=== PATIENT | male | born 1970 | race Hispanic/Latino ===

== ENCOUNTER 2017-09-02 06:54 | Day surgery (SDC) | payer BC ==
[2016-08-04 08:27] VITALS: BMI 24.4
[2017-09-02 07:47] VITALS: TEMP 97
[2017-09-02] MEDS ORDERED: Lactated Ringer's 1,000 ML IV ONE (09:08)
[2017-09-02] MEDS ORDERED: Propofol 10 mg/ml Inj (20 ML) ONE ×2 (09:11→09:35)
[2017-09-02] MEDS ORDERED: Ketamine 50 mg/ml Inj (10 ml) ONE (09:12)
[2017-09-02 09:21] VITALS: O2SAT 100
[2017-09-02] MEDS ORDERED: Lactated Ringer's 500 ML IV SCH (09:30)
[2017-09-02 11:26] VITALS: RESP 18
[2017-09-02 11:31] VITALS: BP 127/84; PULSE 62
== END 2017-09-02 10:45 | disposition home or self-care (01) ==
LOC: C.ENDO 06:54
PROVIDERS: ATTEND Internal Medicine Gastroenterology
DX: Z12.11 Encounter for screening for malignant neoplasm of colon (principal); Z86.010 Personal history of colon polyps; K64.1 Second degree hemorrhoids; I10 Essential (primary) hypertension; Z79.899 Other long term (current) drug therapy; K63.5 Polyp of colon
CPT/HCPCS: 45380; 88305; J2704; J7120

== ENCOUNTER 2018-02-01 11:48 | Emergency (ER) | payer OTHER ==
[2018-02-01 11:48] VITALS: BMI 24.4
[2018-02-01 12:03] VITALS: TEMP 98.1; O2SAT 98
--- NOTE | 2018-02-01 12:19 | C.PDOC ---
History Of Present Illness 47yo male with history of right elbow fracture (7 years ago), comes to ER for evaluation of persistent right elbow pain x 3 weeks. Patient states he injured his elbow on hard surface and has been having pain since then. Otherwise, he denies decrease in ROM, weakness, numbness or tingling. He denies any new injuries within the past 3 weeks. He offers no additional medical complaints. Time Seen by Provider: 02/01/18 11:57 Chief Complaint (Nursing): Upper Extremity Problem/Injury History Per: Patient History/Exam Limitations: no limitations Onset/Duration Of Symptoms: Persistent (3 weeks) Current Symptoms Are (Timing): Still Present Quality: "Pain" Additional History Per: Patient Past Medical History Reviewed: Historical Data, Nursing Documentation, Vital Signs Vital Signs: Last Vital Signs Temp 98.1 F 02/01/18 11:56 Pulse 88 02/01/18 11:56 Resp 18 02/01/18 11:56 BP 147/101 H 02/01/18 11:56 Pulse Ox 98 02/01/18 13:36 - Medical History PMH: Asthma, Colonic Polyps, Fractures (left wrist, right elbow), Gastritis, HTN , Kidney Stones Denies: Chronic Kidney Disease Surgical History: Tonsillectomy (1973) - [facility] Procedures CYSTOSCOPY NEC (02/19/14) TETANUS TOXOID ADMINIST (09/20/13) Family History: States: No Known Family Hx, Unknown Family Hx - Social History Hx Tobacco Use: No Hx Alcohol Use: Yes Hx Substance Use: No - Immunization History Hx Tetanus Toxoid Vaccination: No Hx Influenza Vaccination: Yes Hx Pneumococcal Vaccination: No Review Of Systems Musculoskeletal: Positive for: Arm Pain (right elbow pain) Neurological: Negative for: Weakness, Numbness Physical Exam - Physical Exam Appears: Non-toxic, No Acute Distress Extremity: Normal ROM (FROM at right elbow; patient able to pronate and supinate with no difficulty), Tenderness (mild tenderness to right lateral epicondyle), Capillary Refill (< 2 seconds), No Deformity, No Swelling Neurological/Psych: Oriented x3, Normal Motor, Normal Sensation (normal distal sensations on right upper extremity) ED Course And Treatment O2 Sat by Pulse Oximetry: 98 (RA) Pulse Ox Interpretation: Normal - Other Rad XR Right Elbow X-Ray: Viewed By Me, Read By Radiologist Interpretation: FINDINGS: BONES: A radial head ocular surface fracture with approximately 1 mm cortical offset depression suggested on series 4, image 1. History states prior fracture however no further details are prior images delineating where fracture was an its prior appearance are offered. Comparison images are strongly recommended. Graft olecranon spurring present. No posterior elbow fractures noted. JOINTS: Arthrosis present. SOFT TISSUES: Normal. JOINT EFFUSION: A large joint effusion appreciated. A small anterior elbow joint effusion cannot be excluded. OTHER FINDINGS: None. IMPRESSION: Radial head articular surface fracture with 1 mm depression. The history states prior fracture -additional imaging an additional history regarding the appearance and location a prior fracture is essential. If and when any outside pertinent images are presented, supplemental report can be issued. Patient is referencing pain of the lateral epicondyle - conceivably the lateral radial head fracture may also be contributing to this site of pain. Outside images are central in assessing for any interval change here in terms of acute and/or chronic injury. No large joint effusion suggested. Small joint effusion not excluded Orthopedic Time Performed: 13:26 Time Out: Side verified, Site verified, Patient ID confirmed Procedure: Splint Type: Posterior Location: Right Consent obtained: Verbal Diagnosis: Fracture Type: Non-displaced Bone: Radius (right radial head) Capillary refill: Normal Distal Sensation: Normal Distal Motor Function: Normal Capillary Refill: Normal Compartment: Normal, Soft, Nontender Distal Sensation: Normal Distal Motor Function: Normal Patient tolerated procedure: Well Notes:: Splint placed by CP and checked by provider. Medical Decision Making Medical Decision Making: Impression: Right elbow injury Plan: -- XR Right elbow -- Tylenol 975mg PO 1249 XR discussed with radiologist who states the patient might have a radial head fracture, splint applied, will f/u with ortho. Disposition Counseled Patient/Family Regarding: Studies Performed, Diagnosis, Need For Followup, Rx Given - Disposition Referrals: Keith Petit III, MD [Staff Provider] - Disposition: HOME/ ROUTINE Disposition Time: 13:34 Condition: GOOD Additional Instructions: Please follow up with Dr Petit and bring xray reports from your initial elbow fracture for comparison. Tylenol for pain. Keep splint clean and dry. . Prescriptions: Acetaminophen [Tylenol 325mg tab] 650 mg PO Q4 #50 tab Instructions: Elbow Fracture (DC) Forms: [employer] (Beninese), General Discharge Instructions - Clinical Impression Clinical Impression: Fracture of radial head, right, closed - PA / EDITOR MANAGING NEWSPAPER / Resident Statement MD/DO has reviewed & agrees with the documentation as recorded. - Scribe Statement The provider has reviewed the documentation as recorded by the Colleenibe Lizzeth Barton Provider Attestation: All medical record entries made by the Colleenibmarcello were at my direction and personally dictated by me. I have reviewed the chart and agree that the record accurately reflects my personal performance of the history, physical exam, medical decision making, and the department course for this patient. I have also personally directed, reviewed, and agree with the discharge instructions and disposition.
--- NOTE | 2018-02-01 12:47 | RAD ---
Date of service: 02/01/2018 PROCEDURE: Radiographs of the right elbow. HISTORY: prior fx, banged elbow, pain lat epicondyle COMPARISON: No prior. FINDINGS: BONES: A radial head ocular surface fracture with approximately 1 mm cortical offset depression suggested on series 4, image 1. History states prior fracture however no further details are prior images delineating where fracture was an its prior appearance are offered. Comparison images are strongly recommended. Graft olecranon spurring present No posterior elbow fractures noted. JOINTS: Arthrosis present SOFT TISSUES: Normal. JOINT EFFUSION: A large joint effusion appreciated. A small anterior elbow joint effusion cannot be excluded. OTHER FINDINGS: None. IMPRESSION: Radial head articular surface fracture with 1 mm depression. The history states prior fracture -additional imaging an additional history regarding the appearance and location a prior fracture is essential. If and when any outside pertinent images are presented, supplemental report can be issued Patient is referencing pain of the lateral epicondyle - conceivably the lateral radial head fracture may also be contributing to this site of pain. Outside images are central in assessing for any interval change here in terms of acute and/or chronic injury. No large joint effusion suggested. Small joint effusion not excluded Comments: Findings discussed with the PA view Janeth in the fast [facility] ER on 02/01/2018 at 12:45 p.m.
[2018-02-01 13:44] VITALS: BP 148/81; PULSE 78; RESP 16
== END 2018-02-01 13:43 | disposition home or self-care (01) ==
LOC: C.ER 11:48
DX: S52.124A Nondisplaced fracture of head of right radius, initial encounter for closed fracture (principal); X58.XXXA Exposure to other specified factors, initial encounter

== ENCOUNTER 2018-02-15 09:54 | Emergency (ER) | payer OTHER ==
[2018-02-15 09:55] VITALS: BMI 24.4
[2018-02-15 10:06] VITALS: BP 160/102; PULSE 89; RESP 18; TEMP 98.3; O2SAT 100
--- NOTE | 2018-02-15 10:30 | C.PDOC ---
History Of Present Illness 48 year old male presents to the ED for evaluation of right foot pain which had sudden onset two days ago. Patient reports pain with movement of his right big toe. He has been taking Celebrex and applying ice to the area with mild relief. Patient states the pain worsened last night, and presents to the ED for further evaluation. He does not recall eating anything aside from his regular diet and denies direct trauma/injury to the area. Time Seen by Provider: 02/15/18 10:07 Chief Complaint (Nursing): Lower Extremity Problem/Injury History Per: Patient History/Exam Limitations: no limitations Onset/Duration Of Symptoms: Days (2), Sudden Onset Current Symptoms Are (Timing): Worse - Ankle/Foot Description Of Injury: denies: Fell, Struck With Object, Struck Against Object Alleviating Factor(s): Ice Therapy Past Medical History Reviewed: Historical Data, Nursing Documentation, Vital Signs Vital Signs: Last Vital Signs Temp 98.3 F 02/15/18 10:04 Pulse 89 02/15/18 10:04 Resp 18 02/15/18 10:04 BP 160/102 H 02/15/18 10:04 Pulse Ox 100 02/15/18 11:12 - Medical History PMH: Asthma, Colonic Polyps, Fractures (left wrist, right elbow), Gastritis, HTN , Kidney Stones, Chronic Kidney Disease Surgical History: Tonsillectomy (1973) - [facility] Procedures CYSTOSCOPY NEC (02/19/14) TETANUS TOXOID ADMINIST (09/20/13) Family History: States: Unknown Family Hx - Social History Hx Tobacco Use: No Hx Alcohol Use: Yes Hx Substance Use: No - Immunization History Hx Tetanus Toxoid Vaccination: No Hx Influenza Vaccination: Yes Hx Pneumococcal Vaccination: No Review Of Systems Musculoskeletal: Positive for: Foot Pain (right) Skin: Negative for: Rash Neurological: Negative for: Weakness, Numbness Physical Exam - Physical Exam Additional Physical Exam Comments: Constitutional: No acute distress. Head: Atraumatic. Eyes: PERRL. Cardiovascular: Dorsalis Pedis pulse 2+ right lower extremity. Musculoskeletal: erythema, swelling, and tenderness to right foot 1st MTP Skin: No rash. Neurologic: Alert, no focal deficit. ED Course And Treatment O2 Sat by Pulse Oximetry: 100 (on RA) Pulse Ox Interpretation: Normal Medical Decision Making Medical Decision Making: Impression: 48 year old male with right foot pain Plan: * right foot XR * Toradol IM * reassess and disposition Progress: Right foot XR ordered and reviewed. Patient given Toradol IM. XR negative for fracture or dislocation as read by radiologist. 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 I have reviewed the chart and agree that the record accurately reflects my personal performance of the history, physical exam, medical decision making, and the department course for this patient. I have also personally directed, reviewed, and agree with the discharge instructions and disposition.
--- NOTE | 2018-02-15 11:43 | RAD ---
Date of service: 02/15/2018 PROCEDURE: Right Foot Radiographs. HISTORY: 1st MTP pain/swelling COMPARISON: None. FINDINGS: BONES: No acute fracture or destructive bony lesion identified. JOINTS: Normal. SOFT TISSUES: Normal. OTHER FINDINGS: None. IMPRESSION: Unremarkable right foot radiographs.
== END 2018-02-15 11:57 | disposition home or self-care (01) ==
LOC: C.ER 09:54
DX: M13.871 Other specified arthritis, right ankle and foot (principal)
CPT/HCPCS: 73630; 96372; 99283; J1885

== ENCOUNTER 2018-08-22 09:17 | Outpatient (CLI) | payer OTHER | END 2018-08-22 09:18 | disposition home or self-care (01) | LOC: C.CARD 09:17 ==

== ENCOUNTER 2018-09-19 11:51 | Emergency (ER) | payer OTHER ==
[2018-09-19 12:04] VITALS: BMI 25.0
[2018-09-19 12:07] VITALS: BP 153/90; PULSE 90; RESP 18; TEMP 98.6; O2SAT 98
--- NOTE | 2018-09-19 12:30 | C.PDOC ---
History Of Present Illness 48 yo male, presnets for eval. states has had persistent cough. saw pmd given zithromax and prednisone. all other symptoms improved but cough. mild "raspy voice". Time Seen by Provider: 09/19/18 12:21 Chief Complaint (Nursing): Cough, Cold, Congestion Past Medical History Reviewed: Historical Data, Nursing Documentation, Vital Signs Vital Signs: Last Vital Signs Temp 98.6 F 09/19/18 12:04 Pulse 90 09/19/18 12:04 Resp 18 09/19/18 12:04 BP 153/90 H 09/19/18 12:04 Pulse Ox 98 09/19/18 12:04 - Medical History PMH: Asthma, Colonic Polyps, Fractures (left wrist, right elbow), Gastritis, HTN, Kidney Stones, Chronic Kidney Disease Surgical History: Tonsillectomy (1973) - [facility] Procedures CYSTOSCOPY NEC (02/19/14) TETANUS TOXOID ADMINIST (09/20/13) Family History: States: Unknown Family Hx - Social History Hx Tobacco Use: No Hx Alcohol Use: Yes Hx Substance Use: No - Immunization History Hx Tetanus Toxoid Vaccination: No Hx Influenza Vaccination: Yes Hx Pneumococcal Vaccination: No Review Of Systems ENT: Positive for: Other (hoase voice) Respiratory: Positive for: Cough Physical Exam - Physical Exam Appears: Well, No Acute Distress Skin: Normal Color, Warm, Dry Eye(s): bilateral: Normal Inspection, PERRL, EOMI Nose: Normal Throat: No Erythema, No Exudate, No Drooling, No Mass Neck: Normal Cardiovascular: Rhythm Regular Respiratory: Normal Breath Sounds Gastrointestinal/Abdominal: Normal Exam Back: Normal Inspection Extremity: Normal ROM ED Course And Treatment O2 Sat by Pulse Oximetry: 98 Medical Decision Making Medical Decision Making: lungs cta. suspect viral laryngitis r/o pna- no pharanx erythema exudate unlateral swelling ekg nsr [address] twave chagnes poor tracing v2 2/2 artifact Disposition - Disposition Referrals: Rigo Meza MD [Staff Provider] - Disposition: HOME/ ROUTINE Disposition Time: 12:30 Condition: STABLE Additional Instructions: please see specialist. reutrn to any er with worsening. Instructions: Laryngitis, Viral Syndrome (DC) Forms: [employer] (Sing[place]an) - Clinical Impression Clinical Impression: Viral disease
--- NOTE | 2018-09-19 12:52 | RAD ---
HISTORY: cough COMPARISON: None available. TECHNIQUE: Chest PA and lateral FINDINGS: LUNGS: No focal consolidation. Please note that chest x-ray has limited sensitivity for the detection of pulmonary masses. PLEURA: No significant pleural effusion identified. No definite pneumothorax . CARDIOVASCULAR: Heart size appears within normal limits. No atherosclerotic calcification present. OSSEOUS STRUCTURES: Degenerative changes. VISUALIZED UPPER ABDOMEN: Unremarkable. OTHER FINDINGS: None. IMPRESSION: No focal consolidation.
--- NOTE | 2018-09-20 12:46 | CARD ---
APPROVED REPORT Date of service: 09/19/2018 EKG Measurement Heart [id number] <Conclusion> Normal sinus rhythm Minimal voltage criteria for LVH, may be normal variant Septal infarct, age undetermined Abnormal ECG
== END 2018-09-19 12:45 | disposition home or self-care (01) ==
LOC: C.ER 11:51
DX: B34.9 Viral infection, unspecified (principal); I12.9 Hypertensive chronic kidney disease with stage 1 through stage 4 chronic kidney disease, or unspecified chronic kidney disease; N18.9 Chronic kidney disease, unspecified